=== PATIENT | female | born 1990 | race Two or more races ===

== ENCOUNTER 2019-12-26 09:57 | Day surgery (SDC) | payer OTHER | END 2019-12-26 16:40 | disposition home or self-care (01) | LOC: AMB-ENDOS 09:57 | PROVIDERS: ATTEND Surgery | DX: K31.7 Polyp of stomach and duodenum (principal); K29.50 Unspecified chronic gastritis without bleeding; K44.9 Diaphragmatic hernia without obstruction or gangrene ==